=== PATIENT | female | born 2000 | race Caucasian/White ===

== ENCOUNTER 2022-07-06 17:06 | Inpatient (IN) ==
[2022-07-06] MEDS ORDERED: SODIUM CHLORIDE 0.9% 1000ML 2,000 ML IV SCH (17:15)
--- NOTE | 2022-07-06 17:17 | Emergency Department Note ---
Impression & Plan Seizure, History of alcohol abuse ED Provider Note NAME: MISHEL GARCIA AGE: 21 SEX: F : 2000 ARRIVES VIA: Ambulance INFORMANT: Patient ED PROVIDER(S): Keny Raya DO CHIEF COMPLAINT: seizure HPI: Patient is a 19-year-old female with past medical history of seizure disorder that presents to the ER for 2 seizures today. Second one today lasted for about 20 minutes. Patient was found postictal via EMS. She is currently in [facility] for alcohol rehab. Has not drank in about 8 days. Still headache. No change in vision. No chest pain or shortness of breath. No nausea, vomiting or diarrhea. No dysuria, urgency or frequency. She follows with neurology. She was just started on Lamictal this morning. She has been on Vimpat 150 mg. PAST MEDICAL HISTORY:See Below PAST SURGICAL HISTORY:See Below FAMILY HISTORY:See Below SOCIAL HISTORY:See Below HOME MEDICATIONS:See Below ALLERGIES:See Below VITALS:See Below PHYSICAL EXAMINATION: GENERAL: Sitting up in bed, alert, well appearing, well nourished, no distress, non-toxic EYE EXAM: normal conjunctiva. PERRL and EOM's intact. OROPHARYNX: no exudate, no erythema, lips, buccal mucosa, and tongue normal and mucous membranes are moist NECK: supple, no nuchal rigidity, no adenopathy, non-tender LUNGS: Clear to auscultation. Normal chest wall mechanics HEART: no murmurs, S1 normal and S2 normal ABDOMEN: abdomen soft, non-tender, normo-active bowel sounds, no masses, no rebound or guarding. BACK: Back is symmetrical on inspection and there is no deformity, no midline tenderness, no CVA tenderness. UPPER EXTREMITIES: upper extremities are grossly normal. LOWER EXTREMITIES: No pitting edema. NEURO EXAM: Normal sensorium, cranial nerves II-XII intact, normal speech, no weakness of arms, no weakness of legs. No drift. Finger to nose intact. Gross sensation intact. MEDICAL DECISION MAKING: Patient 19-year-old female who was sent from [facility]. She was seen here twice on the for seizures and has seizure once again today. She is completely back to baseline. IV was established blood work was obtained. External records were reviewed from centers. Labs show leukocytosis of 11,000. Mild anemia 11. BMP along with LFTs bilirubin was unremarkable. COVID was negative. CT head was negative. She was given IV Keppra 3.5 g. She is updated bedside. Discussed with the hospitalist for the recurrent seizures. Doubt withdrawal at this time. Discussed following this with Adin Marrero for further evaluation management treatment. Triage Nursing notes reviewed. Limited review of prior medical records performed Vital Signs: reviewed and remarkable for no significant abnormalities Differential diagnosis: Differential diagnosis includes etiologies such as infection, hypoglycemia, electrolyte abnormalities, cardiac sources, intracerebral event, trauma, toxicologic, neurologic, as well as others were entertained. ER treatment provided: See below Diagnostics interpreted by me include EKG and cardiac monitoring as listed below: -Cardiac Monitoring: An order was placed for continuous cardiac monitoring. The monitor shows a rate of 70 with sinus rhythm. -ECG: none -Laboratory studies:Interpreted by me as stated above in MDM and shown below. Imaging studies: Xrays: As interpreted by me:none CTs show: CT of the head shows no bleed CT of the head per my read showed no obvious large bleed Consultation(s): As described in MDM Procedures:none Critical Care: None Past Med/Surg History Social History Smoking Status: Current every day smoker Tobacco Type: Cigarettes Preferred Language: Barbadian Feels Safe at Home: Yes Allergies Allergies Allergy/AdvReac Type Severity Reaction Status Date / Time No Known Allergies Allergy Unverified 07/04/22 01:29 Home Meds Home Medications Medication Instructions Recorded Confirmed acetaminophen 500 mg tablet 1,000 mg PO Q6H PRN Pain 07/04/22 07/06/22 (Tylenol Extra Strength) lacosamide 150 mg tablet (Vimpat) 150 mg PO BID 07/04/22 07/06/22 levothyroxine 25 mcg tablet 25 mcg PO DAILYBB 07/04/22 07/06/22 (Synthroid) Results & Data (ED) Vital Signs Vital Signs - 24 hr 07/06/22 17:17 07/06/22 17:37 07/06/22 17:32 Temperature 36.8 C Temperature Source Temporal Artery Scan Pulse Rate 78 80 78 Pulse Rate from SpO2 Sensor 81 Pulse Rhythm Regular Pulse Strength Normal Respiratory Rate 20 21 Respiratory Effort / Characteristics Non-Labored Spontaneous Respiratory Depth Normal Respiratory Pattern Regular Blood Pressure 130/83 Blood Pressure Mean 98 Blood Pressure Position Sitting Pulse Oximetry 98 97 Oxygen Delivery Method Room Air Sepsis Recent Fever Within 48 Hours No Sepsis New/Unexplained Change in Mental Status No Sepsis Action Taken by Nursing No Action Required 07/06/22 17:40 07/06/22 17:50 07/06/22 18:00 Temperature Temperature Source Pulse Rate 81 77 72 Pulse Rate from SpO2 Sensor 82 76 72 Pulse Rhythm Pulse Strength Respiratory Rate 15 17 16 Respiratory Effort / Characteristics Respiratory Depth Respiratory Pattern Blood Pressure Blood Pressure Mean Blood Pressure Position Pulse Oximetry 97 98 98 Oxygen Delivery Method Sepsis Recent Fever Within 48 Hours Sepsis New/Unexplained Change in Mental Status Sepsis Action Taken by Nursing 07/06/22 18:38 07/06/22 18:40 07/06/22 18:50 Temperature Temperature Source Pulse Rate 101 H 83 80 Pulse Rate from SpO2 Sensor 82 81 Pulse Rhythm Pulse Strength Respiratory Rate 16 19 24 Respiratory Effort / Characteristics Respiratory Depth Respiratory Pattern Blood Pressure Blood Pressure Mean Blood Pressure Position Pulse Oximetry 96 97 Oxygen Delivery Method Sepsis Recent Fever Within 48 Hours Sepsis New/Unexplained Change in Mental Status Sepsis Action Taken by Nursing 07/06/22 19:00 07/06/22 19:10 Temperature Temperature Source Pulse Rate 76 76 Pulse Rate from SpO2 Sensor 77 76 Pulse Rhythm Pulse Strength Respiratory Rate 21 23 Respiratory Effort / Characteristics Respiratory Depth Respiratory Pattern Blood Pressure Blood Pressure Mean Blood Pressure Position Pulse Oximetry 97 99 Oxygen Delivery Method Sepsis Recent Fever Within 48 Hours Sepsis New/Unexplained Change in Mental Status Sepsis Action Taken by Nursing Laboratory Data 07/06/22 18:06 07/06/22 18:06 Lab Results 07/06/22 07/06/22 07/06/22 Range/Units 18:06 18:06 18:16 WBC 11.23 H (4.8-10.8) K/ul RBC 4.30 (4.20-5.40) M/uL Hgb 11.0 L (12.0-16.0) g/dl Hct 35.5 L (37.0-47.0) % MCV 82.6 (80.0-100.0) fL MCH 25.6 (25.0-34.0) pg MCHC 31.0 L (32.0-36.0) g/dL RDW Std Deviation 50.9 H (36.4-46.3) fL RDW Coeff of Ajay 16.9 H (11.5-14.5) % Plt Count 439 H (130-400) K/uL MPV 8.6 L (9.4-12.4) fL Immature Gran % (Auto) 0.4 % Neut % (Auto) 57.5 % Lymph % (Auto) 33.6 % Moore % (Auto) 5.8 % Eos % (Auto) 1.8 % Baso % (Auto) 0.9 % Neut # (Auto) 6.47 (1.40-6.50) K/uL Lymph # (Auto) 3.77 H (1.2-3.4) K/uL Moore # (Auto) 0.65 H (0.11-0.59) K/uL Eos # (Auto) 0.20 (0-0.50) K/uL Baso # (Auto) 0.10 (0-0.2) K/uL Immature Gran # (Auto) 0.04 (0.01-0.20) K/uL Sodium 140 (136-145) mmol/L Potassium 4.0 (3.5-5.1) mmol/L Chloride 110 H (98-107) mmol/L Carbon Dioxide 23 (21-32) mmol/L Anion Gap 7 (3-11) BUN 6 (6-23) mg/dl Creatinine 0.65 (0.6-1.2) mg/dl Est Cr Clr Drug Dosing Not Reportable Est GFR ( Amer) 146.1 ml/min Est GFR (Non-Af Amer) 126.0 ml/min BUN/Creatinine Ratio 9.2 L (10-20) Glucose 84 (70-99(Fasting)) mg/dl Calcium 8.9 (8.6-10.3) mg/dl Magnesium 1.8 (1.7-2.4) mg/dl Total Bilirubin 0.2 (0.2-1.0) mg/dl AST 11 L (13-39) U/L ALT 13 (7-52) U/L Alkaline Phosphatase 89 (34-104) U/L Total Protein 6.4 (6.0-8.3) gm/dl Albumin 3.9 (3.4-5.0) gm/dl Globulin 2.5 (2.5-4.0) gm/dl Albumin/Globulin Ratio 1.6 (0.9-2) TSH 1.850 (0.300-4.500) uIu/ml SARS-CoV-2, RNA, NAAT (NEGATIVE) 07/06/22 Range/Units 20:05 WBC (4.8-10.8) K/ul RBC (4.20-5.40) M/uL Hgb (12.0-16.0) g/dl Hct (37.0-47.0) % MCV (80.0-100.0) fL MCH (25.0-34.0) pg MCHC (32.0-36.0) g/dL RDW Std Deviation (36.4-46.3) fL RDW Coeff of Ajay (11.5-14.5) % Plt Count (130-400) K/uL MPV (9.4-12.4) fL Immature Gran % (Auto) % Neut % (Auto) % Lymph % (Auto) % Moore % (Auto) % Eos % (Auto) % Baso % (Auto) % Neut # (Auto) (1.40-6.50) K/uL Lymph # (Auto) (1.2-3.4) K/uL Moore # (Auto) (0.11-0.59) K/uL Eos # (Auto) (0-0.50) K/uL Baso # (Auto) (0-0.2) K/uL Immature Gran # (Auto) (0.01-0.20) K/uL Sodium (136-145) mmol/L Potassium (3.5-5.1) mmol/L Chloride (98-107) mmol/L Carbon Dioxide (21-32) mmol/L Anion Gap (3-11) BUN (6-23) mg/dl Creatinine (0.6-1.2) mg/dl Est Cr Clr Drug Dosing Est GFR ( Amer) ml/min Est GFR (Non-Af Amer) ml/min BUN/Creatinine Ratio (10-20) Glucose (70-99(Fasting)) mg/dl Calcium (8.6-10.3) mg/dl Magnesium (1.7-2.4) mg/dl Total Bilirubin (0.2-1.0) mg/dl AST (13-39) U/L ALT (7-52) U/L Alkaline Phosphatase (34-104) U/L Total Protein (6.0-8.3) gm/dl Albumin (3.4-5.0) gm/dl Globulin (2.5-4.0) gm/dl Albumin/Globulin Ratio (0.9-2) TSH (0.300-4.500) uIu/ml SARS-CoV-2, RNA, NAAT NEGATIVE (NEGATIVE) Administered Medications Discontinued Medications Acetaminophen (Acetaminophen 325 Mg Tab) 650 mg PO NOW STA Stop: 07/06/22 18:00 Last Admin: 07/06/22 18:03 Dose: 650 mg Documented By: LEIDA Sodium Chloride (Nss 1000ml) 2,000 mls @ 999 mls/hr IV .Q2H1M PATRIA Stop: 07/06/22 19:15 Last Infusion: 07/06/22 19:42 Dose: 0 mls/hr Documented By: Admin: 07/06/22 17:37 Dose: 999 mls/hr Documented By: LEIDA Levetiracetam 3,650 mg/ Sodium (Chloride) 136.5 mls @ 819 mls/hr IV NOW STA Stop: 07/06/22 19:32 Last Infusion: 07/06/22 21:23 Dose: 0 mls/hr Documented By: Admin: 07/06/22 21:04 Dose: 819 mls/hr Documented By: LEIDA Acetaminophen (Ofirmev) 1,000 mg in 100 mls @ 400 mls/hr IV NOW STA Stop: 07/06/22 20:38 Last Infusion: 07/06/22 21:22 Dose: 0 mls/hr Documented By: Admin: 07/06/22 21:04 Dose: 400 mls/hr Documented By: LEIDA Imaging Data Radiologist's Impression: Head CT 07/06/22 17:[address] DOSE: 547.75 mGy.cm HISTORY: Headache. Seizures. TECHNIQUE: Multiaxial CT images of the head were performed without the use of intravenous contrast. Automated exposure control was utilized for this study. A dose lowering technique was utilized adhering to the principles of ALARA. Comparison: None. Findings: The paranasal sinuses and mastoid air cells are clear. The calvarium and skull base are intact. The ventricles and sulci are within normal limits. There is no mass, hematoma, midline shift, or acute infarct. Impression: No acute intracranial abnormality. ACT 112: Negative or not required by law. Electronically signed by: Shravan Roberts M.D. 07/06/2022 7:30 PM Discharge Plan Visit Data Chief Complaint: Seizure ED Provider: Keny Raya Discharge Problem: Seizure, History of alcohol abuse Patient Disposition: Admitted As Inpatient Discharge Instructions Interventions: ED Discharge Assessment Last Done: 07/06/22 21:22
[2022-07-06] MEDS ORDERED: ACETAMINOPHEN 325 MG TAB PO STA (17:59)
[2022-07-06 18:49] LABS: Basophils % (auto) 0.9 %; Eosinophils % (auto) 1.8 %; Hematocrit (blood only) 35.5 % (37.0-47.0); Immature Granulocytes # (auto) 0.04 K/uL (0.01-0.20); Immature Granulocytes % (auto) 0.4 %; Lymphocytes # (auto) 3.77 K/uL (1.2-3.4); Lymphocytes % (auto) 33.6 %; Mean Corpuscular Hemoglobin 25.6 pg (25.0-34.0); Mean Corpuscular Volume 82.6 fL (80.0-100.0); Mean Platelet Volume 8.6 fL (9.4-12.4); Monocytes # (auto) 0.65 K/uL (0.11-0.59); Monocytes % (auto) 5.8 %; Neutrophils # (auto) 6.47 K/uL (1.40-6.50); Neutrophils % (auto) 57.5 %; Platelet Count 439 K/uL (130-400); RDW Coefficient of Variation 16.9 % (11.5-14.5); RDW Standard Deviation 50.9 fL (36.4-46.3); White Blood Count 11.23 K/ul (4.8-10.8)
[2022-07-06] MEDS ORDERED: SODIUM CHLORIDE 0.9% IV STA (19:31)
[2022-07-06] MEDS ORDERED: LEVETIRACETAM IV STA (19:31)
--- NOTE | 2022-07-06 19:32 | CT Scan Report ---
HEAD CT NONCONTRAST CT DOSE: 547.75 mGy.cm HISTORY: Headache. Seizures. TECHNIQUE: Multiaxial CT images of the head were performed without the use of intravenous contrast. A utomated exposure control was utilized for this study. A dose lowering technique was utilized adheri ng to the principles of ALARA. Comparison: None. Findings: The paranasal sinuses and mastoid air cells are clear. The calvarium and skull base are int act. The ventricles and sulci are within normal limits. There is no mass, hematoma, midline shift, or acute infarct. Impression: No acute intracranial abnormality. ACT 112: Negative or not required by law. Electronically signed by: Shravan Roberts M.D. 07/06/2022 7:30 PM
[2022-07-06 19:37] LABS: Albumin Level 3.9 gm/dl (3.4-5.0); Anion Gap 7 (3-11); Bilirubin,Total 0.2 mg/dl (0.2-1.0); Calcium 8.9 mg/dl (8.6-10.3); Carbon Dioxide 23 mmol/L (21-32); Chloride 110 mmol/L (98-107); Magnesium 1.8 mg/dl (1.7-2.4); Sodium 140 mmol/L (136-145)
[2022-07-06 19:43] LABS: Alanine Aminotransferase 13 U/L (7-52); Albumin Globulin Ratio 1.6 (0.9-2); Alkaline Phosphatase 89 U/L (34-104); Aspartate Aminotransferase 11 U/L (13-39); BUN Creatinine Ratio 9.2 (10-20); Blood Urea Nitrogen 6 mg/dl (6-23); Est GFR (African American) 146.1 ml/min; Globulin 2.5 gm/dl (2.5-4.0); Glucose 84 mg/dl (70-99(Fasting)); Total Protein 6.4 gm/dl (6.0-8.3)
[2022-07-06] MEDS ORDERED: LORazepam 2 MG/1 ML VIAL IV PRN (20:23)
[2022-07-06] MEDS ORDERED: ACETAMINOPHEN 1,000 MG/100 ML VIAL IV STA (20:24)
--- NOTE | 2022-07-06 20:34 | History & Physical Report ---
Date of Service July 06, 2022 Assessment & Plan (1) Breakthrough seizure: Plan: -Admit to the PCU on tele -Currently stable and back to baseline mental status -Patient has had multiple focal and tonic-clonic seizures over the past 48 hours -Her antiepileptic regimen is in the process of being adjust by her Home Neurologist, was currently on Vimpat BID and started daily Lamictal yesterday due to breakthrough seizures -Had two more seizures prior to arrival today -Loading dose of Keppra ordered by the ED yet to arrive from the pharmacy, she was ordered 3650 mg IV to start -For now will continue with BID IV keppra until she is seen by Neurology tomorrow as this appears to have worked the best for her in the past >Will start with 1000 mg IV q12h with next dose of 0900 tomorrow -Will order 2 mg IV ativan q5m prn for seizure activity for now -Continue seizure precautions -Will add on TSH level for further evaluation with her hx of hypothyroidism -Neurology consulted and will see her tomorrow -BL SCD's for DVT PPX -AM CBC, CMP, mag (2) Hypothyroidism: Plan: -Will FU TSH level ordered on admission -Continue levothyroxine (3) History of alcohol abuse: Plan: -Currently at [facility] for rehab, states her last drink was approximately 2 weeks ago and she completed detox prior to arriving to [facility] -Does not appear to be in alcohol withdrawal at this time, BP and HR are WNL, no signs of tremor or anxiety -Will continue to monitor on tele and continue seizure peculations -Will order daily thiamine and folic acid, she states she has been on these at [facility] Plan The patient was discussed with Dr. Falcon at the time of the admission History of Present Illness Chief Complaint: Recurrent seizures Primary Care Provider: ANA Valentine is a 21 year old female with a PMH significant for tonic-clonic seizures, hypothyroidism, and alcohol abuse who presented to the [facility] ED via EMS on 07/06/22 due to seizures at her rehab facility. The patient is currently at [facility] for alcohol rehab. This is the third ED visit in the past 48 hours for the patient due to seizures. In the ED the patient's vitals were stable. Labs were significant for a downtrending leukocytosis of 11, platelets of 439, and covid [address] of the head today was negative for acute f indings. The patient was back to her baseline mental status at the time of ED arrival. Prior to admission she was given 650 mg PO tylenol, 1L NSS, and ordered a loading dose of 3,650 mg IV keppra. At the time of the exam the patient was resting in bed in no acute distress. She states that she has a long seizure history, her typical seizures are tonic- clonic. She follows with a Neurologist and was previously on 1500 mg BID PO keppra, which seemed to be controlled her seizures. She states that there were concerns that the keppra could be causing depressive symptoms so she was transitioned to Vimpat, and is currently on 150 mg PO BID. Due to continuing to have seizures while on Vimpat, her Neurologist recommended the Physician at [facility] add 25 mg PO lamicatal which she reports was started yesterday. She tells me she had one focal seizure which lasted approximately 3 min this am and then another tonic-clonic seizure again lasting approximately 3 min about an hour before ED arrival. She tells me that she went through detox at another facility prior to arriving to [facility] with her last drink being approximately 2 weeks ago. She is currently feeling well and denies recent fever, chills, changes in vision, hearing, taste, smell, chest pain, SOB, abd pain, nausea, vomiting, diarrhea, dysuria, hematuria, LE swelling, and recent trauma. She typically can sense when a seizure is coming on as she will start to become dizzy and get shooting pains in her extremities. She denies feeling as though she is still going through alcohol withdrawal at this time. She would w ant her sister, Lisbeth Small ([phone]) to make medical decisions for her if she could not make them herself. Prior to accepting the patient for admission I was able to speak with out retort feeder ground bone Neurologist. He confirmed that she is suitable to stay at our facility at this time as she is back to her baseline mental status and is not in status epilepticus. They will see her tomorrow. Please refer to Dr. Falcon's attestation for any changes to the treatment plan Allergies Allergy/AdvReac Type Severity Reaction Status Date / Time No Known Allergies Allergy Unverified 07/04/22 01:29 Home Medications Medication Instructions Recorded Confirmed Type acetaminophen 500 mg tablet 1,000 mg PO Q6H PRN Pain 07/04/22 07/06/22 History (Tylenol Extra Strength) lacosamide 150 mg tablet (Vimpat) 150 mg PO BID 07/04/22 07/06/22 History levothyroxine 25 mcg tablet 25 mcg PO DAILYBB 07/04/22 07/06/22 History (Synthroid) Past Med/Surg History Social History Smoking Status: Current every day smoker Tobacco Type: Cigarettes Preferred Language: Setswana Feels Safe at Home: Yes Physical Exam Physical Exam: Physical Exam: General: In no acute distress, stated age, well-nourished, good hygiene HEENT: Normocephalic, atraumatic, no scleral icterus, pupils around round, symmetrical, dilated, and reactive to light, moist mucus membranes, trachea midline, no thyromegaly Chest/Pulm: No respiratory distress, symmetrical chest expansion, clear breath sounds throughout Cardiac: RRR, no murmurs noted Abdomen: Negative for ascites and bruising, normoactive bowel sounds, soft, non-tender to palpation throughout Musculoskeletal: Symmetrical and without signs of acute trauma, upper and lower extremities with full ROM, no atrophy, spasticity, or flaccidity Extremities: Radial, dorsalis pedis, and posterior tibial pulses are intact and symmetrical, no edema noted in the BL LE's Skin: Warm, dry, no rashes , lesions, or scars noted Neuro: Alert and oriented to person, place, month, year, and president, no focal defects, CN II-XII tested and intact, finger to nose test negative, no tremors noted Psych: No acute distress, calm and cooperative during the exam Results & Data Results & Data Vital Signs (Past 12 Hours) Vital Signs Temp Pulse Resp BP Pulse Ox O2 Del Method 07/06/22 19:10 76 23 99 07/06/22 19:00 76 21 97 07/06/22 18:50 80 24 97 07/06/22 18:40 83 19 96 07/06/22 18:38 101 H 16 07/06/22 18:00 72 16 98 07/06/22 17:50 77 17 98 07/06/22 17:40 81 15 97 07/06/22 17:32 78 21 97 07/06/22 17:37 80 07/06/22 17:17 36.8 C 78 20 130/83 98 Room Air Laboratory Results Abnormal lab results 07/06/22 07/06/22 Range/Units 18:06 18:06 WBC 11.23 H (4.8-10.8) K/ul Hgb 11.0 L (12.0-16.0) g/dl Hct 35.5 L (37.0-47.0) % MCHC 31.0 L (32.0-36.0) g/dL RDW Std Deviation 50.9 H (36.4-46.3) fL RDW Coeff of Ajay 16.9 H (11.5-14.5) % Plt Count 439 H (130-400) K/uL MPV 8.6 L (9.4-12.4) fL Lymph # (Auto) 3.77 H (1.2-3.4) K/uL Major # (Auto) 0.65 H (0.11-0.59) K/uL Chloride 110 H (98-107) mmol/L BUN/Creatinine Ratio 9.2 L (10-20) AST 11 L (13-39) U/L Diagnostic Findings Head CT 07/06/22 17:[address] DOSE: 547.75 mGy.cm HISTORY: Headache. Seizures. TECHNIQUE: Multiaxial CT images of the head were performed without the use of intravenous contrast. Automated exposure control was utilized for this study. A dose lowering technique was utilized adhering to the principles of ALARA. Comparison: None. Findings: The paranasal sinuses and mastoid air cells are clear. The calvarium and skull base are intact. The ventricles and sulci are within normal limits. There is no mass, hematoma, midline shift, or acute infarct. Impression: No acute intracranial abnormality. ACT 112: Negative or not required by law. Electronically signed by: Shravan Roberts M.D. 07/06/2022 7:30 PM Code Status & VTE Plan Code Status Full code VTE Prophylaxis Plan VTE Prophylaxis will be ordered: Yes PG Care Time/CCT Total # of Minutes Spent Total Time Spent with Patient: Total time spent is greater than 50% in coordination of care (as documented) at patient's floor/unit and/or counseling patient: Coding [place] [address] INT INP/OBS CARE MIN Patient Type Established History Comprehensive Exam Comprehensive Medical Decision Making High Complexity Diagnoses Breakthrough seizure G40.919 Hypothyroidism E03.9 History of alcohol abuse F10.11
[2022-07-07 06:34] LABS: Basophils # (auto) 0.07 K/uL (0-0.2); Basophils % (auto) 1.2 %; Eosinophils # (auto) 0.17 K/uL (0-0.50); Eosinophils % (auto) 2.9 %; Hematocrit (blood only) 31.8 % (37.0-47.0); Hemoglobin 9.8 g/dl (12.0-16.0); Immature Granulocytes # (auto) 0.02 K/uL (0.01-0.20); Immature Granulocytes % (auto) 0.3 %; Lymphocytes # (auto) 2.44 K/uL (1.2-3.4); Lymphocytes % (auto) 41.1 %; Mean Corpuscular Hemoglobin 25.5 pg (25.0-34.0); Mean Corpuscular Hgb Conc 30.8 g/dL (32.0-36.0); Mean Corpuscular Volume 82.8 fL (80.0-100.0); Mean Platelet Volume 8.6 fL (9.4-12.4); Monocytes # (auto) 0.47 K/uL (0.11-0.59); Monocytes % (auto) 7.9 %; Neutrophils # (auto) 2.76 K/uL (1.40-6.50); Neutrophils % (auto) 46.6 %; Platelet Count 390 K/uL (130-400); RDW Standard Deviation 51.5 fL (36.4-46.3); Red Blood Count 3.84 M/uL (4.20-5.40); White Blood Count 5.93 K/ul (4.8-10.8)
[2022-07-07 06:58] LABS: Albumin Globulin Ratio 1.7 (0.9-2); Albumin Level 3.7 gm/dl (3.4-5.0); BUN Creatinine Ratio 12.3 (10-20); Bilirubin,Total 0.2 mg/dl (0.2-1.0); Creatinine Clr Calc Pharmacy 147.1 ml/min; Est GFR (African American) 146.1 ml/min; Globulin 2.2 gm/dl (2.5-4.0); Magnesium 1.8 mg/dl (1.7-2.4); Potassium 3.7 mmol/L (3.5-5.1); Total Protein 5.9 gm/dl (6.0-8.3)
[2022-07-07] MEDS: ONDANSETRON INJ 2 MG/ML 2 ML VIAL IV PRN ×3 (08:00→22:26)
[2022-07-07] MEDS: FOLIC ACID 1 MG TAB PO SCH (08:00)
[2022-07-07] MEDS: THIAMINE HCL 100 MG TAB PO SCH (08:00)
[2022-07-07] MEDS: levETIRAcetam 1,000 MG in 0.9 % SODIUM CHLORIDE 100 ML IV SCH ×2 (10:17→21:46)
[2022-07-07] MEDS: LACOSAMIDE 50 MG TABLET PO SCH ×2 (12:38→21:45)
[2022-07-07] MEDS: ACETAMINOPHEN 325 MG TAB PO PRN ×2 (12:38→21:48)
--- NOTE | 2022-07-07 12:53 | Electrocardiogram Report ---
Test Reason : Blood Pressure : / mmHG Vent. Rate : 073 BPM Atrial Rate : 073 BPM P-R Int : 190 ms QRS Dur : 070 ms QT Int : 382 ms P-R-T Axes : 071 091 076 degrees QTc Int : 420 ms Normal sinus rhythm Rightward axis Borderline ECG When compared with ECG of 04-JUL-2022 17:13, No significant change was found Confirmed by Zachary Nicholson ([id number]) on 07/07/2022 12:52:36 PM Referred By: REFERRED SELF Confirmed By:Marques Nicholson
--- NOTE | 2022-07-07 13:39 | Hospitalist Progress Note ---
Date of Service July 07, 2022 Assessment & Plan (1) Breakthrough seizure: Plan: Keppra added to Vimpat. Appreciate neurology consultation and recommendations. Admission head CT scan negative for pathology or bleed. (2) Hypothyroidism: Plan: Stable. TSH is normal. Continue levothyroxine replacement therapy (3) History of alcohol abuse: Plan: Currently at [facility] for rehab. States her last drink was approximately 2 weeks ago and she completed detox prior to arriving to [facility]. No signs of alcohol withdrawal or DTs at this time. Continue thiamine and folic acid supplements Plan Hopeful discharge back to [facility] tomorrow, July 08 Admission and Anticipated Discharge Date Admission Date: July 06, 2022 Subjective Somnolent but easily awakened. She told the nursing staff that she has left- sided weakness but findings are minimal. She does have a headache. She is too young for ischemic CVA. Case discussed with neurology. Keppra has been added to Vimpat. Admission head CT scan negative. Review of Systems Review of Systems: Constitutional-no fever or chills ENT-no blurred vision, no double vision, no epistaxis, no sore throat Respiratory-no cough, no wheezing, no shortness of breath Cardiac-no palpitations, no chest pain, no syncope GI-no nausea, vomiting, diarrhea, melena, hematochezia -no urinary retention, no urinary incontinence, no dysuria, no hematuria Musculoskeletal-no joint pain, no muscle tenderness Skin-no bruising, no rashes, no pruritus Neuro-complaining of left-sided weakness today. Also complaining of headache Psych-no depression, no anxiety Physical Exam Physical Exam: General-somnolent but easily arousable and oriented. Morbidly obese HEENT-head atraumatic and normocephalic, pupils equal and reactive to light, extraocular muscles intact Neck-no lymphadenopathy or thyromegaly, trachea midline Chest-clear to auscultation percussion. No rales, wheezing or rhonchi Cardiac-regular rate and rhythm, normal S1 and S2 Abdomen-normal bowel sounds, nontender, no hepatosplenomegaly Extremities-no cyanosis, clubbing, or edema Neuro-cranial nerves II through XII intact, motor and sensory function within normal limits, strength symmetrical , no focal deficits Psych-flat affect Results & Data Results & Data Vital Signs (Past 12 Hours) Vital Signs Temp Pulse Resp BP BP Pulse Ox Pulse Ox 07/07/22 11:16 37.2 C 81 17 106/65 96 07/07/22 10:56 97 07/07/22 07:28 36.7 C 88 14 101/67 96 07/07/22 02:45 36.7 C 75 18 102/63 95 O2 Del Method O2 Del Method 07/07/22 11:16 Room Air 07/07/22 10:56 Room Air 07/07/22 07:28 Room Air 07/07/22 02:45 Room Air Laboratory Results 07/07/22 05:51 07/07/22 05:51 PG Care Time/CCT Total # of Minutes Spent Total Time Spent with Patient: Total time spent is greater than 50% in coordination of care (as documented) at patient's floor/unit and/or counseling patient: Coding Level of Care Code 76006 SUB INP/OBS CARE 3/50MIN Diagnoses Breakthrough seizure G40.919 Hypothyroidism E03.9 History of alcohol abuse F10.11
--- NOTE | 2022-07-07 13:56 | Consultation Report ---
NEUROLOGY CONSULTATION NOTE DATE OF CONSULTATION: 07/07/2022. CHIEF COMPLAINT: Recurrent seizure. HISTORY OF PRESENT ILLNESS: This is a 21-year-old female with a history of tonic-clonic seizures, hypothyroidism, and alcohol abuse admitted to the hospital due to a seizure at a rehab facility. She is currently admitted to [facility] alcohol [facility]. This is her third ER visit in the past 48 hours due to seizures. The patient was back to her baseline in the ED prior to arrival. She was loaded with Keppra 3650 mg IV in the ER. She does have a long history of seizures. Her typical seizures are generalized tonic-clonic. She follows with a neurologist and was previously on Keppra 1500 mg twice daily. There was a concern that Keppra may be contributing to some mood changes and she was transitioned to Vimpat, currently 150 mg twice a day. While on Vimpat at the acute rehab facility, it was recommended to add Lamictal 25 mg daily, which she started on Friday. The patient was back to baseline prior to admission and neurology was consulted upon admission. ALLERGIES: No known allergies. HOME MEDICATIONS: Vimpat 150 mg twice daily. PAST MEDICAL HISTORY: Alcohol abuse and history of seizure. PAST SURGICAL HISTORY: No pertinent surgical history. FAMILY HISTORY: No pertinent family history. SOCIAL HISTORY: She is a current smoker, she drinks alcohol. PHYSICAL EXAMINATION: VITAL SIGNS: Blood pressure is 101/67, pulse is 88, respiratory rate is 14, and temperature is 36.7 degrees Celsius. She is lethargic but answers questions appropriately. No tongue abrasion. Minimally participates in my examine. Speech is soft. ASSESSMENT AND PLAN: A 21-year-old female with a history of epilepsy admitted with recurrent seizure in the setting of alcohol rehabilitation. She does have a history of alcohol abuse. Recommend to continue home Vimpat 150 mg twice daily. She reports better control with Keppra in the past but stopped at one point due to possible mood changes. Given the breakthrough seizure will add Keppra 500 mg twice daily. Recommend stopping Lamictal for now as she recently only started 25 mg daily. Otherwise, the patient may benefit from further ambulatory EEG or continuous EEG if seizures continue for further spell characterization. Otherwise, recommend she follow up with her neurologist as outpatient. Job ID: [id number] [facility]
[2022-07-07] MEDS ORDERED: KETOROLAC TROMETHAMINE 15 MG/ML VIAL IV PRN (14:41)
[2022-07-08 06:59] LABS: Basophils # (auto) 0.08 K/uL (0-0.2); Basophils % (auto) 0.9 %; Eosinophils % (auto) 2.2 %; Hematocrit (blood only) 33.5 % (37.0-47.0); Hemoglobin 10.4 g/dl (12.0-16.0); Immature Granulocytes # (auto) 0.02 K/uL (0.01-0.20); Immature Granulocytes % (auto) 0.2 %; Lymphocytes # (auto) 2.46 K/uL (1.2-3.4); Lymphocytes % (auto) 26.7 %; Mean Corpuscular Hemoglobin 25.7 pg (25.0-34.0); Mean Corpuscular Volume 82.7 fL (80.0-100.0); Mean Platelet Volume 9.3 fL (9.4-12.4); Monocytes # (auto) 0.48 K/uL (0.11-0.59); Monocytes % (auto) 5.2 %; Neutrophils # (auto) 5.97 K/uL (1.40-6.50); Neutrophils % (auto) 64.8 %; Platelet Count 366 K/uL (130-400); RDW Coefficient of Variation 16.6 % (11.5-14.5); RDW Standard Deviation 50.4 fL (36.4-46.3); Red Blood Count 4.05 M/uL (4.20-5.40); White Blood Count 9.21 K/ul (4.8-10.8)
[2022-07-08 07:43] LABS: Albumin Level 3.9 gm/dl (3.4-5.0); Bilirubin,Total 0.2 mg/dl (0.2-1.0); Calcium 9.3 mg/dl (8.6-10.3)
[2022-07-08 07:49] LABS: Albumin Globulin Ratio 1.6 (0.9-2); BUN Creatinine Ratio 16.9 (10-20); Creatinine Clr Calc Pharmacy 147.7 ml/min; Est GFR (African American) 146.1 ml/min; Globulin 2.4 gm/dl (2.5-4.0); Total Protein 6.3 gm/dl (6.0-8.3)
[2022-07-08] MEDS: levETIRAcetam 1,000 MG in 0.9 % SODIUM CHLORIDE 100 ML IV SCH (08:33)
[2022-07-08] MEDS: LACOSAMIDE 50 MG TABLET PO SCH (08:58)
[2022-07-08] MEDS: THIAMINE HCL 100 MG TAB PO SCH (08:58)
[2022-07-08] MEDS: FOLIC ACID 1 MG TAB PO SCH (08:58)
[2022-07-08] MEDS: ACETAMINOPHEN 325 MG TAB PO PRN ×2 (10:50→16:19)
--- NOTE | 2022-07-08 16:37 | Discharge Summary ---
Date of Service July 08, 2022 Admission HPI Per Admitting Provider Meme is a 21 year old female with a PMH significant for tonic-clonic seizures, hypothyroidism, and alcohol abuse who presented to the [facility] ED via EMS on 07/06/22 due to seizures at her rehab facility. The patient is currently at [facility] for alcohol rehab. This is the third ED visit in the past 48 hours for the patient due to seizures. In the ED the patient's vitals were stable. Labs were significant for a downtrending leukocytosis of 11, platelets of 439, and covid [address] of the head today was negative for acute findings. The patient was back to her baseline mental status at the time of ED arrival. Prior to admission she was given 650 mg PO tylenol, 1L NSS, and ordered a loading dose of 3,650 mg IV keppra. At the time of the exam the patient was resting in bed in no acute distress. She states that she has a long seizure history, her typical seizures are tonic- clonic. She follows with a Neurologist and was previously on 1500 mg BID PO keppra, which seemed to be controlled her seizures. She states that there were concerns that the keppra could be causing depressive symptoms so she was transitioned to Vimpat, and is currently on 150 mg PO BID. Due to continuing to have seizures while on Vimpat, her Neurologist recommended the Physician at [facility] add 25 mg PO lamicatal which she reports was started yesterday. She tells me she had one focal seizure which lasted approximately 3 min this am and then another tonic-clonic seizure again lasting approximately 3 min about an hour before ED arrival. She tells me that she went through detox at another facility prior to arriving to [facility] with her last drink being approximately 2 weeks ago. She is currently feeling well and denies recent fever, chills, changes in vision, hearing, taste, smell, chest pain, SOB, abd pain, nausea, vomiting, diarrhea, dysuria, hematuria, LE swelling, and recent trauma. She typically can sense when a seizure is coming on as she will start to become dizzy and get shooting pains in her extremities. She denies feeling as though she is still going through alcohol withdrawal at this time. She would want her sister, Lisbeth Small ([phone]) to make medical decisions for her if she could not make them herself. Prior to accepting the patient for admission I was able to speak with out plant taxonomist Neurologist. He confirmed that she is suitable to stay at our facility at this time as she is back to her baseline mental status and is not in status epilepticus. They will see her tomorrow. Please refer to Dr. Falcon's attestation for any changes to the treatment plan Discharge Data Allergies Allergy/AdvReac Type Severity Reaction Status Date / Time No Known Allergies Allergy Unverified 07/04/22 01:29 Consultations 07/06/22 20:01 ED Decision to Admit Stat 07/06/22 20:21 Consult Neurology Routine Ordered Studies 07/06/22 17:15 CT head/brain wo con Stat Hospital Course (1) Breakthrough seizure: Keppra added to Vimpat. Appreciate neurology consultation and recommendations. Admission head CT scan negative for pathology or bleed. (2) Hypothyroidism: Stable. TSH is normal. Continue levothyroxine replacement therapy (3) History of alcohol abuse: Currently at [facility] for rehab. States her last drink was approximately 2 weeks ago and she completed detox prior to arriving to [facility]. No signs of alcohol withdrawal or DTs at this time. Continue thiamine and folic acid supplements Plan Hopeful discharge back to [facility] tomorrow, July 08 Discharge Plan Discharge Items Patient Disposition: Home - Self-Care Reason For Visit: seizures Discharge Diagnosis: seizures Activity: Resume your previous activity Non-emergency contact: Primary Care Provider Call non-emergency contact if: you have any medication questions Follow-up/Referrals: Sherron Dorantes PA-C [Primary Care Provider] - Diet: Regular Addtl Attending Provider Instructions: You have been hospitalized for an acute medical problem. During your stay at [facility], we have made an effort to correct the problem that brought you to the hospital while keeping you as comfortable as possible. Medications were used to bring your condition under control and your discharge instructions will include directions for any medications you should take after leaving the hospital. Please make sure you see your Primary Care Provider as part of your follow up plan. Followup with your PCP and your Neurologist once you are back home. Pending Studies at Discharge: No Stand-Alone Forms: My [facility], Smoking Cessation Medications and DC Order Prescriptions: New levetiracetam [Keppra] 500 mg tablet 500 mg PO BID Qty: 60 0RF Continued levothyroxine [Synthroid] 25 mcg Tablet 25 mcg PO DAILYBB lacosamide [Vimpat] 150 mg Tablet 150 mg PO BID acetaminophen [Tylenol Extra Strength] 500 mg Tablet 1,000 mg PO Q6H PRN (Reason: Pain) Discharge Orders: Discharge Order (Routine); Ordered 07/08/22 Ordered By: Ugo Funes Admission Data Admit Date/Time: 07/06/22 20:07 Attending Provider: Ugo Funes Admit Provider: Leno Hale Primary Care Provider: Sherron Dorantes Other Providers: Leno Hale ; Thiago Hansen Coding Diagnoses Breakthrough seizure G40.919 Hypothyroidism E03.9 History of alcohol abuse F10.11
[2022-07-08] MEDS ORDERED: levETIRAcetam 500 MG TAB PO SCH ×2 (21:00)
== END 2022-07-08 17:30 | disposition other institution (70) | DRG 101 ==
LOC: ED 17:06 → SUATTDRO 20:07 → 2E 20:07